=== PATIENT | male | born 1955 | race Caucasian/White ===

== ENCOUNTER 2019-12-15 18:49 | Inpatient (IN) | payer OTHER ==
[~2019-12-15] VITALS: Ht 180.3 cm; Wt 88.7 kg
--- NOTE | 2019-12-15 19:15 | NUR ---
BIBA. Alert, answering questions appropriately. States 2 days of increased drainage from surgical drain in LLQ. Pt states hx of stomach CA, part of stomach removed x1 month. Pt has had surgical drain in place since. States he typically has normal UOP and bowel movements, but drain typically puts out small amount of additional stomach contents. Pt states increased drain output immediately after PO intake with increased pain at incision site. Denies abominal pain. Denies fever/chills. Pt states, "I think I'm malnourished because everything that is going in is coming right out."
[2019-12-15] MEDS ORDERED: SODIUM CHLORIDE 0.9% 1,000ML IVBOLUS ONE (19:30)
[2019-12-15] MEDS ORDERED: SODIUM CHLORIDE FLUSH 10ML SYR IVF ONE (19:30)
[2019-12-15 19:54] LABS: BASOPHILS # (AUTO) 0.07 x10^3/uL (0-0.1); BASOPHILS % (AUTO) 1 % (0-1); EOSINOPHILS # (AUTO) 0.05 x10^3/uL (0-0.4); EOSINOPHILS % (AUTO) 0 % (1-7); LYMPHOCYTES # (AUTO) 3.16 x10^3/uL (1-3.4); LYMPHOCYTES % (AUTO) 24 % (22-44); MD NO; MEAN CORPUSCULAR HEMOGLOBIN 27.5 pg (27.5-34.5); MEAN CORPUSCULAR HGB CONC 32.6 g/dL (33.2-36.2); MEAN CORPUSCULAR VOLUME 84.4 fL (81-97); MEAN PLATELET VOLUME 7.1 fL (7.4-10.4); MONOCYTES # (AUTO) 0.45 x10^3/uL (0.2-0.8); MONOCYTES % (AUTO) 3 % (2-9); NEUTROPHILS # (AUTO) 9.72 x10^3/uL (1.8-6.8); NEUTROPHILS % (AUTO) 72 % (42-75); PLATELET COUNT 318 x10^3/uL (130-400); RED BLOOD COUNT 4.82 x10^6/uL (4.38-5.82); RED CELL DISTRIBUTION WIDTH 18.6 % (9.4-14.8)
--- NOTE | 2019-12-15 19:55 | NUR ---
Italia daugherty in [facility] - 12/15/19 at 2010 by AIRAM Hospitalist at [facility]
[2019-12-15] MEDS ORDERED: PLEASE ENTER ALLERGIES MC SCH (20:00)
[2019-12-15 20:06] LABS: ALANINE AMINOTRANSFERASE 48 U/L (12-78); ANION GAP 11 mmol/L (5-15); CHLORIDE 98 mmol/L (98-107); CREATININE 0.97 mg/dL (0.7-1.3)
[2019-12-15 20:09] LABS: ALKALINE PHOSPHATASE 110 U/L (45-117); BILIRUBIN,TOTAL 0.7 mg/dL (0.2-1.0); TOTAL PROTEIN 8.3 g/dL (6.4-8.2)
--- NOTE | 2019-12-15 20:53 | NUR ---
Traveled to [place] with tech. Power port access and info discussed with [facility] tech. Presented port card to CT, pt states he has had CT contrast through this port previously
--- NOTE | 2019-12-15 21:59 | NUR ---
ED MD at bedside
--- NOTE | 2019-12-15 22:14 | NUR ---
LESTER RN: CONTACTED [facility] TO BEGIN PROCESS TO TRANSFER PT PER DR WARD REQUEST. SALES TRAINING REPRESENTATIVE AT [facility] IS ROBERTO.
--- NOTE | 2019-12-15 22:16 | NUR ---
LESTER RN: [facility] MEJIA AT [facility], FACILITY IS AT CAPACITY AND WILL NOT BE ABLE TO TAKE PT AT THIS TIME.
[2019-12-15] MEDS ORDERED: METRONIDAZOLE PMX 500MG/100ML 100 ML ONE (22:29)
[2019-12-15] MEDS ORDERED: SODIUM CHLORIDE 0.9% 1,000 ML IV ONE (22:30)
[2019-12-15] MEDS ORDERED: METRONIDAZOLE PMX 500MG/100ML 100 ML IV ONE (22:30)
--- NOTE | 2019-12-15 22:42 | NUR ---
LESTER RN: [facility] CONTACTED PER DR WARD REQUEST. JBOSS ARCHITECT AT [facility] IS MATILDE.
[2019-12-15] MEDS ORDERED: TRAZODONE 50MG TABLET PO PRN (23:00)
[2019-12-15] MEDS ORDERED: ONDANSETRON 2MG/ML, 2ML IVPush PRN (23:00)
[2019-12-15] MEDS ORDERED: PIPERACILLIN/TAZO/PMX 3.375GM 50 ML IV SCH (23:00)
[2019-12-15] MEDS ORDERED: ACETAMINOPHEN 325 MG TABLET PO PRN (23:00)
[2019-12-15] MEDS ORDERED: hydrALAzine 20 MG/ML, 1ML IVPush PRN (23:00)
[2019-12-15] MEDS ORDERED: OMNIPAQUE 350 MG/ML, 100ML BOTTLE ONE (23:42)
--- NOTE | 2019-12-15 23:49 | NUR ---
Hospitalist at bedside
--- NOTE | 2019-12-16 00:43 | NUR ---
Report given to Florentin LARA
[2019-12-16 01:30] VITALS: BP 113/77
[2019-12-16] MEDS: HEPARIN 5,000 UNITS/ML, 1ML SQ SCH ×2 (01:59→09:30)
[2019-12-16] MEDS: VANCOMYCIN 1,200 MG in SODIUM CHLORIDE 0.9% 250 ML IVPB SCH (02:00)
[2019-12-16] MEDS: SODIUM CHLORIDE 0.9% 1,000 ML IV SCH ×3 (02:00→21:31)
[2019-12-16 06:06] VITALS: BP 115/77
[2019-12-16 06:15] LABS: BASOPHILS # (AUTO) 0.03 x10^3/uL (0-0.1); BASOPHILS % (AUTO) 0 % (0-1); EOSINOPHILS # (AUTO) 0.07 x10^3/uL (0-0.4); EOSINOPHILS % (AUTO) 1 % (1-7); LYMPHOCYTES # (AUTO) 2.36 x10^3/uL (1-3.4); LYMPHOCYTES % (AUTO) 21 % (22-44); MD NO; MEAN CORPUSCULAR HEMOGLOBIN 27.6 pg (27.5-34.5); MEAN CORPUSCULAR HGB CONC 32.6 g/dL (33.2-36.2); MEAN CORPUSCULAR VOLUME 84.6 fL (81-97); MEAN PLATELET VOLUME 7.4 fL (7.4-10.4); MONOCYTES # (AUTO) 0.76 x10^3/uL (0.2-0.8); MONOCYTES % (AUTO) 7 % (2-9); NEUTROPHILS % (AUTO) 71 % (42-75); PLATELET COUNT 218 x10^3/uL (130-400); RED BLOOD COUNT 3.95 x10^6/uL (4.38-5.82); RED CELL DISTRIBUTION WIDTH 18.5 % (9.4-14.8)
[2019-12-16 06:24] LABS: ANION GAP 8 mmol/L (5-15); CALCIUM 7.9 mg/dL (8.5-10.1); CHLORIDE 105 mmol/L (98-107)
[2019-12-16 06:25] LABS: CREATININE 0.79 mg/dL (0.7-1.3)
[2019-12-16 06:31] VITALS: BP 127/85
[2019-12-16] MEDS: PIPERACILLIN/TAZO/PMX 4.5GM 100 ML IV SCH ×3 (10:52→21:30)
[2019-12-16 12:43] VITALS: BP 138/82
[2019-12-16 19:23] VITALS: BP 116/78
[2019-12-17] MEDS: VANCOMYCIN 1,200 MG in SODIUM CHLORIDE 0.9% 250 ML IVPB SCH (02:01)
[2019-12-17 02:07] VITALS: BP 117/76
[2019-12-17] MEDS: PIPERACILLIN/TAZO/PMX 4.5GM 100 ML IV SCH ×4 (04:21→21:48)
[2019-12-17 06:41] VITALS: BP 131/83
[2019-12-17 09:25] LABS: BASOPHILS # (AUTO) 0.02 x10^3/uL (0-0.1); BASOPHILS % (AUTO) 0 % (0-1); EOSINOPHILS # (AUTO) 0.04 x10^3/uL (0-0.4); EOSINOPHILS % (AUTO) 1 % (1-7); LYMPHOCYTES # (AUTO) 1.91 x10^3/uL (1-3.4); LYMPHOCYTES % (AUTO) 24 % (22-44); MD NO; MEAN CORPUSCULAR HEMOGLOBIN 27.3 pg (27.5-34.5); MEAN CORPUSCULAR HGB CONC 32.2 g/dL (33.2-36.2); MEAN CORPUSCULAR VOLUME 84.8 fL (81-97); MEAN PLATELET VOLUME 7.1 fL (7.4-10.4); MONOCYTES # (AUTO) 0.54 x10^3/uL (0.2-0.8); MONOCYTES % (AUTO) 7 % (2-9); NEUTROPHILS # (AUTO) 5.51 x10^3/uL (1.8-6.8); NEUTROPHILS % (AUTO) 69 % (42-75); PLATELET COUNT 200 x10^3/uL (130-400); RED BLOOD COUNT 3.74 x10^6/uL (4.38-5.82); RED CELL DISTRIBUTION WIDTH 18.3 % (9.4-14.8)
[2019-12-17 09:30] LABS: ALANINE AMINOTRANSFERASE 30 U/L (12-78); ALBUMIN 2.2 g/dL (3.4-5.0); ANION GAP 9 mmol/L (5-15); CALCIUM 8.2 mg/dL (8.5-10.1); CHLORIDE 109 mmol/L (98-107); CREATININE 0.69 mg/dL (0.7-1.3)
[2019-12-17 09:33] LABS: ALKALINE PHOSPHATASE 85 U/L (45-117); BILIRUBIN,TOTAL 0.5 mg/dL (0.2-1.0); TOTAL PROTEIN 6.1 g/dL (6.4-8.2)
[2019-12-17] MEDS: SODIUM CHLORIDE 0.9% 1,000 ML IV SCH ×2 (10:55→19:37)
[2019-12-17 12:08] VITALS: BP 130/82
[2019-12-17 19:38] VITALS: BP 121/77
[2019-12-18] MEDS: VANCOMYCIN 1,200 MG in SODIUM CHLORIDE 0.9% 250 ML IVPB SCH (01:28)
[2019-12-18 01:32] VITALS: BP 126/76
[2019-12-18] MEDS: PIPERACILLIN/TAZO/PMX 4.5GM 100 ML IV SCH ×4 (04:11→21:57)
[2019-12-18 07:16] VITALS: BP 134/83
[2019-12-18] MEDS: SODIUM CHLORIDE 0.9% 1,000 ML IV SCH ×2 (08:00→19:34)
[2019-12-18 13:01] VITALS: BP 126/84
[2019-12-18] MEDS ORDERED: OMNIPAQUE 350 MG/ML, 75ML BOTTLE ONE (13:10)
[2019-12-18] MEDS ORDERED: LIDOCAINE 1%, 10ML ONE (15:37)
[2019-12-18] MEDS ORDERED: VANCOMYCIN PER PHARMACY MC PRN (16:00)
[2019-12-18] MEDS ORDERED: PHARMACOKINETIC MONITORING MC PRN (16:00)
[2019-12-18 16:43] VITALS: BP 120/76
[2019-12-18 19:40] VITALS: BP 120/76
[2019-12-19 00:52] VITALS: BP 130/69
[2019-12-19] MEDS: VANCOMYCIN 1,200 MG in SODIUM CHLORIDE 0.9% 250 ML IVPB SCH (01:02)
[2019-12-19 01:12] LABS: CREATININE 0.53 mg/dL (0.7-1.3)
[2019-12-19 01:13] LABS: VANCOMYCIN,TROUGH 5.2 mcg/mL (5.0-10.0)
[2019-12-19] MEDS: PIPERACILLIN/TAZO/PMX 4.5GM 100 ML IV SCH ×4 (03:56→22:22)
[2019-12-19] MEDS: SODIUM CHLORIDE 0.9% 1,000 ML IV SCH (06:30)
[2019-12-19 06:41] VITALS: BP 136/80
[2019-12-19 10:30] LABS: CLOSTRIDIUM DIFFICILE ANTIGEN POSITIVE; CLOSTRIDIUM DIFFICILE TOXIN NEGATIVE (Negative)
[2019-12-19 12:54] VITALS: BP 134/86
[2019-12-19] MEDS: POTASSIUM CHLORIDE 10 MEQ in D5%-0.45% NACL 1,000 ML IV SCH (15:15)
[2019-12-19] MEDS: VANCOMYCIN 1,500 MG in SODIUM CHLORIDE 0.9% 250 ML IV SCH (16:49)
[2019-12-19 18:34] VITALS: BP 139/85
[2019-12-20 00:45] VITALS: BP 134/90
[2019-12-20] MEDS: POTASSIUM CHLORIDE 10 MEQ in D5%-0.45% NACL 1,000 ML IV SCH (03:50)
[2019-12-20] MEDS: PIPERACILLIN/TAZO/PMX 4.5GM 100 ML IV SCH ×2 (04:31→10:21)
[2019-12-20 05:01] LABS: ALANINE AMINOTRANSFERASE 17 U/L (12-78); ANION GAP 11 mmol/L (5-15); CHLORIDE 105 mmol/L (98-107); CREATININE 0.53 mg/dL (0.7-1.3)
[2019-12-20 05:02] LABS: BASOPHILS # (AUTO) 0.02 x10^3/uL (0-0.1); BASOPHILS % (AUTO) 0 % (0-1); EOSINOPHILS # (AUTO) 0.06 x10^3/uL (0-0.4); EOSINOPHILS % (AUTO) 1 % (1-7); LYMPHOCYTES # (AUTO) 1.92 x10^3/uL (1-3.4); LYMPHOCYTES % (AUTO) 29 % (22-44); MD NO; MEAN CORPUSCULAR HEMOGLOBIN 27.4 pg (27.5-34.5); MEAN CORPUSCULAR HGB CONC 32.5 g/dL (33.2-36.2); MEAN CORPUSCULAR VOLUME 84.3 fL (81-97); MEAN PLATELET VOLUME 6.8 fL (7.4-10.4); MONOCYTES # (AUTO) 0.62 x10^3/uL (0.2-0.8); MONOCYTES % (AUTO) 9 % (2-9); NEUTROPHILS # (AUTO) 4.03 x10^3/uL (1.8-6.8); NEUTROPHILS % (AUTO) 61 % (42-75); PLATELET COUNT 223 x10^3/uL (130-400); RED BLOOD COUNT 3.71 x10^6/uL (4.38-5.82); RED CELL DISTRIBUTION WIDTH 17.8 % (9.4-14.8)
[2019-12-20 05:04] LABS: ALKALINE PHOSPHATASE 73 U/L (45-117); BILIRUBIN,TOTAL 0.4 mg/dL (0.2-1.0); TOTAL PROTEIN 6.1 g/dL (6.4-8.2)
[2019-12-20] MEDS ORDERED: POTASSIUM CHLORIDE 40 MEQ in SODIUM CHLORIDE 0.9% 500 ML IV ONE ×2 (06:30→10:30)
[2019-12-20 09:24] VITALS: BP 142/89
[2019-12-20] MEDS: VANCOMYCIN 1,500 MG in SODIUM CHLORIDE 0.9% 250 ML IV SCH (12:05)
[2019-12-20 12:51] VITALS: BP 126/73
[2019-12-20] MEDS ORDERED: MAALOX/HYOSCYAMINE/LIDOCAINE 45 ML BTL PO PRN (14:00)
[2019-12-20] MEDS ORDERED: MAGNESIUM SULFATE PMX 2GM/50ML 50 ML IV ONE (14:30)
[2019-12-20] MEDS ORDERED: TPN PER PHARMACY MC PRN (15:00)
[2019-12-20] MEDS: CEFTRIAXONE PMX 2GM/50ML 50 ML IV SCH (15:23)
[2019-12-20] MEDS: METRONIDAZOLE PMX 500MG/100ML 100 ML IV SCH ×2 (16:31→23:12)
[2019-12-20] MEDS ORDERED: DEXTROSE 10% 500 ML IV PRN (17:00)
[2019-12-20] MEDS ORDERED: AMINO ACID 10% IV SCH (17:00)
[2019-12-20] MEDS ORDERED: DEXTROSE 70% IV SCH (17:00)
[2019-12-20] MEDS ORDERED: [UNRECOGNIZED DRUG - OTHER] IV SCH (17:00)
[2019-12-20] MEDS ORDERED: SMOF TPN IV SCH (17:00)
[2019-12-20] MEDS ORDERED: FAT EMUL IV SCH (17:00)
[2019-12-20] MEDS ORDERED: D5%-0.45% NACL 1,000 ML IV SCH ×2 (17:00→18:00)
[2019-12-20] MEDS ORDERED: DEXTROSE 50%, 50ML SYRINGE IVPush PRN (17:00)
[2019-12-20] MEDS: FILTER, DISP 1.2 MICRON FOR TPN/PVN IV PRN (18:04)
[2019-12-20] MEDS: morphine SULFATE 10 MG/ML, 1ML IVPush PRN (18:29)
[2019-12-20 19:12] VITALS: BP 148/93
[2019-12-20] MEDS: INSULIN REGULAR MEDIUM DOSE Q6H X 48HRS SQ-INSULIN SCH (21:08)
[2019-12-21 00:46] VITALS: BP 131/91
[2019-12-21 03:32] LABS: ALANINE AMINOTRANSFERASE 17 U/L (12-78); ANION GAP 3 mmol/L (5-15); CALCIUM 7.9 mg/dL (8.5-10.1); CHLORIDE 109 mmol/L (98-107); CREATININE 0.52 mg/dL (0.7-1.3)
[2019-12-21 03:35] LABS: ALKALINE PHOSPHATASE 69 U/L (45-117); BILIRUBIN,TOTAL 0.3 mg/dL (0.2-1.0); PREALBUMIN 9.2 mg/dL (20.0-40.0); TRIGLYCERIDES 156 mg/dL (50-200)
[2019-12-21] MEDS: INSULIN REGULAR MEDIUM DOSE Q6H X 48HRS SQ-INSULIN SCH ×4 (04:16→20:31)
[2019-12-21] MEDS: METRONIDAZOLE PMX 500MG/100ML 100 ML IV SCH ×4 (04:18→22:49)
[2019-12-21] MEDS ORDERED: ONDANSETRON 2MG/ML, 2ML ONE (07:49)
[2019-12-21] MEDS ORDERED: DEXAMETHASONE 4 MG/ML, 1ML ONE (07:49)
[2019-12-21] MEDS ORDERED: PROPOFOL 10 MG/ML, 20ML ONE (07:49)
[2019-12-21] MEDS ORDERED: KETOROLAC 30 MG/1 ML IV PRN (08:00)
[2019-12-21] MEDS ORDERED: OXYcodone 5 MG/5 ML ORAL.SOL UDC PO PRN (08:00)
[2019-12-21] MEDS ORDERED: ALBUTEROL SULFATE 2.5 MG/3 ML NPPB PRN (08:00)
[2019-12-21] MEDS ORDERED: HYDROmorphone 2 MG/ML, 1ML IVPush PRN (08:00)
[2019-12-21] MEDS ORDERED: DIAZEPAM 5 MG/ML, 2ML IVPush PRN (08:00)
[2019-12-21] MEDS ORDERED: ACETAMINOPHEN 325 MG TABLET PO PRN (08:00)
[2019-12-21] MEDS ORDERED: LABETALOL 5MG/ML, 20ML IV PRN (08:00)
[2019-12-21] MEDS ORDERED: MEPERIDINE/PF 25MG/0.5ML IVPush PRN (08:00)
[2019-12-21] MEDS ORDERED: hydrALAzine 20 MG/ML, 1ML IV PRN (08:00)
[2019-12-21] MEDS ORDERED: FENTANYL PF 100 MCG/2ML IV PRN (08:00)
[2019-12-21] MEDS ORDERED: PROMETHAZINE 25 MG/ML, 1ML IV PRN (08:00)
[2019-12-21] MEDS ORDERED: FENTANYL PF 100 MCG/2ML ONE (08:10)
[2019-12-21] MEDS ORDERED: MORPHINE SULFATE 4 MG/ML, 1ML ONE (09:18)
[2019-12-21] MEDS: morphine SULFATE 10 MG/ML, 1ML IVPush PRN ×2 (09:19→15:53)
[2019-12-21] MEDS ORDERED: ALBUTEROL HFA 90 MCG/SPRAY INH PRN (10:00)
[2019-12-21] MEDS: OXYcodone/APAP 5/325MG TABLET PO PRN (10:51)
[2019-12-21 12:19] VITALS: BP 131/86
[2019-12-21] MEDS: CEFTRIAXONE PMX 2GM/50ML 50 ML IV SCH (14:43)
[2019-12-21] MEDS ORDERED: AMINO ACID 10% IV SCH (17:00)
[2019-12-21] MEDS ORDERED: DEXTROSE 70% IV SCH (17:00)
[2019-12-21] MEDS ORDERED: [UNRECOGNIZED DRUG - OTHER] IV SCH (17:00)
[2019-12-21] MEDS ORDERED: SMOF TPN IV SCH (17:00)
[2019-12-21] MEDS ORDERED: FAT EMUL IV SCH (17:00)
[2019-12-21] MEDS: FILTER, DISP 1.2 MICRON FOR TPN/PVN IV PRN (17:26)
[2019-12-21 19:28] VITALS: BP 144/91
[2019-12-22] MEDS: INSULIN REGULAR MEDIUM DOSE Q6H X 48HRS SQ-INSULIN SCH ×3 (03:35→15:50)
[2019-12-22] MEDS: OXYcodone/APAP 5/325MG TABLET PO PRN (03:40)
[2019-12-22 03:51] VITALS: BP 140/82
[2019-12-22 03:58] LABS: ALANINE AMINOTRANSFERASE 13 U/L (12-78); ANION GAP 5 mmol/L (5-15); CALCIUM 8.3 mg/dL (8.5-10.1); CHLORIDE 105 mmol/L (98-107)
[2019-12-22 04:01] LABS: ALKALINE PHOSPHATASE 66 U/L (45-117); BILIRUBIN,TOTAL 0.3 mg/dL (0.2-1.0); CREATININE 0.47 mg/dL (0.7-1.3); TOTAL PROTEIN 5.9 g/dL (6.4-8.2)
[2019-12-22] MEDS: METRONIDAZOLE PMX 500MG/100ML 100 ML IV SCH ×4 (04:39→22:33)
[2019-12-22] MEDS ORDERED: OMNIPAQUE 350 MG/ML, 150 ML BOTTLE ONE (08:45)
[2019-12-22] MEDS ORDERED: CYCLOBENZAPRINE 10 MG TABLET ONE (11:45)
[2019-12-22] MEDS ORDERED: CYCLOBENZAPRINE 10 MG TABLET PO SCH (12:00)
[2019-12-22 13:18] VITALS: BP 141/94
[2019-12-22] MEDS: CEFTRIAXONE PMX 2GM/50ML 50 ML IV SCH (14:14)
[2019-12-22] MEDS ORDERED: DIAZEPAM 5 MG/ML, 2ML IV PRN ×2 (14:30→15:27)
[2019-12-22] MEDS ORDERED: DEXTROSE 70% IV SCH (17:00)
[2019-12-22] MEDS ORDERED: AMINO ACID 10% IV SCH (17:00)
[2019-12-22] MEDS ORDERED: [UNRECOGNIZED DRUG - OTHER] IV SCH (17:00)
[2019-12-22] MEDS ORDERED: FAT EMUL IV SCH (17:00)
[2019-12-22] MEDS ORDERED: SMOF TPN IV SCH (17:00)
[2019-12-22] MEDS: FILTER, DISP 1.2 MICRON FOR TPN/PVN IV PRN (17:11)
[2019-12-22 17:44] LABS: MEAN CORPUSCULAR HEMOGLOBIN 27.2 pg (27.5-34.5); MEAN CORPUSCULAR HGB CONC 32.1 g/dL (33.2-36.2); MEAN CORPUSCULAR VOLUME 84.6 fL (81-97); MEAN PLATELET VOLUME 7.1 fL (7.4-10.4); PLATELET COUNT 223 x10^3/uL (130-400); RED BLOOD COUNT 3.87 x10^6/uL (4.38-5.82); RED CELL DISTRIBUTION WIDTH 18.2 % (9.4-14.8)
[2019-12-22 18:02] LABS: ANISOCYTOSIS 1+; BASOPHILS # (AUTO) 0.02 x10^3/uL (0-0.1); BASOPHILS % (AUTO) 0 % (0-1); EOSINOPHILS # (AUTO) 0.06 x10^3/uL (0-0.4); EOSINOPHILS % (AUTO) 1 % (1-7); LYMPHOCYTES # (AUTO) 2.25 x10^3/uL (1-3.4); LYMPHOCYTES % (AUTO) 20 % (22-44); MD MORPH REVIEW ONLY; MONOCYTES # (AUTO) 0.12 x10^3/uL (0.2-0.8); MONOCYTES % (AUTO) 1 % (2-9); NEUTROPHILS # (AUTO) 9.02 x10^3/uL (1.8-6.8); NEUTROPHILS % (AUTO) 79 % (42-75); POLYCHROMASIA 1+
[2019-12-22 18:03] LABS: <PLATELET ESTIMATE> ADEQUATE; <PLT MORPHOLOGY> NORMAL PLT MORPH; OVALOCYTES 1+
[2019-12-22] MEDS ORDERED: VANCOMYCIN PER PHARMACY MC PRN (18:30)
[2019-12-22 18:43] VITALS: BP 146/94
[2019-12-22] MEDS ORDERED: PHARMACOKINETIC CONSULTATION MC ONE (19:00)
[2019-12-22] MEDS ORDERED: PHARMACOKINETIC MONITORING MC PRN (19:00)
[2019-12-22] MEDS: PIPERACILLIN/TAZO/PMX 3.375GM 50 ML IV SCH (19:45)
[2019-12-22] MEDS: VANCOMYCIN 1,500 MG in SODIUM CHLORIDE 0.9% 250 ML IV SCH (20:08)
[2019-12-22] MEDS: morphine SULFATE 10 MG/ML, 1ML IVPush PRN (22:46)
[2019-12-23 00:39] VITALS: BP 146/95
[2019-12-23] MEDS: PIPERACILLIN/TAZO/PMX 3.375GM 50 ML IV SCH ×2 (03:44→11:14)
[2019-12-23] MEDS: METRONIDAZOLE PMX 500MG/100ML 100 ML IV SCH ×3 (04:45→16:30)
[2019-12-23 05:10] LABS: MEAN CORPUSCULAR HEMOGLOBIN 27.6 pg (27.5-34.5); MEAN CORPUSCULAR HGB CONC 32.4 g/dL (33.2-36.2); MEAN CORPUSCULAR VOLUME 85.4 fL (81-97); MEAN PLATELET VOLUME 7.3 fL (7.4-10.4); PLATELET COUNT 194 x10^3/uL (130-400); RED BLOOD COUNT 3.49 x10^6/uL (4.38-5.82); RED CELL DISTRIBUTION WIDTH 18.8 % (9.4-14.8)
[2019-12-23 06:01] LABS: BASOPHILS # (AUTO) 0.11 x10^3/uL (0-0.1); BASOPHILS % (AUTO) 1 % (0-1); EOSINOPHILS # (AUTO) 0.15 x10^3/uL (0-0.4); EOSINOPHILS % (AUTO) 2 % (1-7); LYMPHOCYTES # (AUTO) 1.99 x10^3/uL (1-3.4); LYMPHOCYTES % (AUTO) 20 % (22-44); MD SCAN; MONOCYTES # (AUTO) 0.38 x10^3/uL (0.2-0.8); MONOCYTES % (AUTO) 4 % (2-9); NEUTROPHILS # (AUTO) 7.26 x10^3/uL (1.8-6.8); NEUTROPHILS % (AUTO) 73 % (42-75)
[2019-12-23 06:23] LABS: ALBUMIN 1.9 g/dL (3.4-5.0); ANION GAP 8 mmol/L (5-15); CALCIUM 7.7 mg/dL (8.5-10.1); CHLORIDE 104 mmol/L (98-107)
[2019-12-23 06:29] LABS: ALANINE AMINOTRANSFERASE 12 U/L (12-78); ALKALINE PHOSPHATASE 67 U/L (45-117); BILIRUBIN,TOTAL 0.3 mg/dL (0.2-1.0); CREATININE 0.55 mg/dL (0.7-1.3); PREALBUMIN 9.6 mg/dL (20.0-40.0); TOTAL PROTEIN 5.5 g/dL (6.4-8.2)
[2019-12-23 07:50] VITALS: BP 144/90
[2019-12-23] MEDS ORDERED: INSULIN REGULAR MEDIUM DOSE QDAY SQ-INSULIN SCH (09:00)
[2019-12-23] MEDS: VANCOMYCIN 1,500 MG in SODIUM CHLORIDE 0.9% 250 ML IV SCH (12:36)
[2019-12-23 13:26] VITALS: BP 159/91
[2019-12-23] MEDS: CEFTRIAXONE PMX 2GM/50ML 50 ML IV SCH (15:00)
[2019-12-23] MEDS ORDERED: [UNRECOGNIZED DRUG - OTHER] IV SCH (17:00)
[2019-12-23] MEDS ORDERED: SMOF TPN IV SCH (17:00)
[2019-12-23] MEDS ORDERED: AMINO ACID 10% IV SCH (17:00)
[2019-12-23] MEDS ORDERED: DEXTROSE 70% IV SCH (17:00)
[2019-12-23] MEDS ORDERED: FAT EMUL IV SCH (17:00)
[2019-12-24] MEDS ORDERED: VANCOMYCIN 1,500 MG in SODIUM CHLORIDE 0.9% 250 ML IV SCH (06:00)
== END 2019-12-23 17:45 | disposition short-term general hospital (02) | DRG 871 ==
LOC: ED 21:56 → UNDOADMIN 22:34 → EDIP 22:34 → 3N 12-16 01:17 → 5SO 12-16 06:10 → 4NW 12-19 18:31
PROVIDERS: ADMIT Student in an Organized Health Care Education/Training Program; ATTEND Internal Medicine
PROC: 0W9B3ZZ Drainage of Left Pleural Cavity, Percutaneous Approach (ICD-10-PCS; 2019-12-18)
PROC: 0DB38ZX Excision of Lower Esophagus, Via Natural or Artificial Opening Endoscopic, Diagnostic (ICD-10-PCS; principal; 2019-12-21 07:30)
DX: A41.9 Sepsis, unspecified organism (principal); E43 Unspecified severe protein-calorie malnutrition; E87.1 Hypo-osmolality and hyponatremia; I82.621 Acute embolism and thrombosis of deep veins of right upper extremity; J90 Pleural effusion, not elsewhere classified; J98.11 Atelectasis; D18.00 Hemangioma unspecified site; D64.9 Anemia, unspecified; E86.1 Hypovolemia; E87.6 Hypokalemia; Z66 Do not resuscitate; Z79.01 Long term (current) use of anticoagulants; Z68.27 Body mass index [BMI] 27.0-27.9, adult; Z90.49 Acquired absence of other specified parts of digestive tract; Z92.21 Personal history of antineoplastic chemotherapy; Z93.3 Colostomy status
CPT/HCPCS: 32555; 36415; 74240; 82042; 82945; 83986; 89051; 89055; 99291; J3475; J3490; 71045; 71260; 74177; 80048; 80053; 80202; 82565; 82962; 83036; 83605; 83615; 83690; 83735; 84100; 84134; 84157; 84478; 85025; 87015; 87040; 87070; 87075; 87116; 87205; 87206; 87324; 87635; 88305; G0378; J0610; J0696; J1100; J1644; J1815; J2405; J2543; J2704; J3010; J3360; J3370; J3480; Q9967; J2270; J3420; J7030; J7040; J7050